=== PATIENT | female | born 1995 | race Caucasian/White ===

== ENCOUNTER 2017-10-20 11:26 | Inpatient (IN) | payer BC ==
[2017-10-20 14:42] LABS: ADD MAN DIFF? NO
[2017-10-20] MEDS ORDERED: CARBOPROST 250 MCG INJ IM (15:00)
[2017-10-20] MEDS ORDERED: IBUPROFEN 600 MG TAB PO (15:00)
[2017-10-20] MEDS ORDERED: METHYLERGONOVINE 0.2 MG INJ IM (15:00)
[2017-10-20] MEDS ORDERED: MISOPROSTOL 200 MCG TAB PR (15:00)
[2017-10-20] MEDS: LACTATED RINGER'S 1,000 ML IV ×2 (15:13→22:49)
[2017-10-20] MEDS: AMPICILLIN 2 GM/NS (PMX) 100 ML IV (15:14)
[2017-10-20 15:45] LABS: INR 0.89; PROTIME 12.1 Sec (11.9-14.9); PT RATIO 0.9
[2017-10-20 15:46] LABS: PARTIAL THROMBOPLASTIN TIME 26.4 Sec (25.0-35.0)
[2017-10-20 16:05] LABS: WHITE BLOOD COUNT 11.7 10^3/ul (4.8-10.8)
[2017-10-20 16:05] LABS: RED BLOOD COUNT 4.08 10^6/ul (4.20-5.40)
[2017-10-20 16:06] LABS: HEMATOCRIT 36.1 % (37.0-47.0)
[2017-10-20 16:07] LABS: MEAN CORPUSCULAR HEMOGLOBIN 29.9 pg (29.0-33.0); MEAN CORPUSCULAR HGB CONC 33.8 g/dl (32.0-37.0); MEAN CORPUSCULAR VOLUME 88.5 fl (72.0-104.0)
[2017-10-20 16:08] LABS: RED CELL DISTRIBUTION WIDTH 12.4 % (11.5-14.5)
[2017-10-20 16:09] LABS: MEAN PLATELET VOLUME 12.6 fl (7.4-10.4); NEUTROPHILS % 70.3 % (30.0-74.0); PLATELET COUNT 182 10^3/UL (140-415)
[2017-10-20 16:10] LABS: EOSINOPHILS % 0.5 % (0.0-7.0)
[2017-10-20 16:11] LABS: BASOPHILS % 0.3 % (0.0-2.0); NEUTROPHIL # 8.2 10^3/ul (1.6-7.5)
[2017-10-20 16:12] LABS: EOSINOPHILS # 0.1 10^3/ul (0.0-0.5); LYMPHOCYTES # 2.5 10^3/ul (0.8-2.9); MONOCYTE # 0.8 10^3/ul (0.3-0.9)
[2017-10-20 18:24] LABS: HEPATITIS B SURFACE ANTIGEN NEGATIVE (NEGATIVE)
[2017-10-20] MEDS: AMPICILLIN 1 GM/NS (PMX) 50 ML IV ×2 (18:32→22:48)
[2017-10-21] MEDS: AMPICILLIN 1 GM/NS (PMX) 50 ML IV (02:56)
[2017-10-21] MEDS: BUTORPHANOL 2 MG INJ IV (04:57)
[2017-10-21] MEDS: OXYTOCIN 30 UNITS/LR 500 ML IV ×3 (06:30→07:20)
[2017-10-21] MEDS: LIDOCAINE 1% (MPF) 30 ML INJ INJ (06:37)
[2017-10-21] MEDS ORDERED: OXYTOCIN 30 UNITS/LR 500 ML IV ×2 (07:17→07:30)
[2017-10-21] MEDS ORDERED: METHYLERGONOVINE 0.2 MG INJ IM (07:30)
[2017-10-21] MEDS ORDERED: CARBOPROST 250 MCG INJ IM (07:30)
[2017-10-21] MEDS ORDERED: MISOPROSTOL 200 MCG TAB PR (07:30)
[2017-10-21] MEDS: IBUPROFEN 600 MG TAB PO ×4 (07:37→23:35)
[2017-10-21] MEDS ORDERED: IBUPROFEN 600 MG TAB (07:37)
[2017-10-21] MEDS ORDERED: HYDROCODONE/APAP (5/325) TAB PO (08:00)
[2017-10-21] MEDS: LACTATED RINGER'S 500 ML ×3 (11:03→14:59)
[2017-10-21] MEDS: BENZOCAINE 20% 56 ML SPRAY TOP (12:08)
[2017-10-21] MEDS: LANOLIN 7 GM TUBE TOP (12:09)
[2017-10-21 12:56] LABS: HEMOGLOBIN 12.2 g/dl (12.0-16.0)
[2017-10-21 19:49] LABS: RAPID PLASMA REAGIN NONREACTIVE (NR)
[2017-10-22] MEDS: IBUPROFEN 600 MG TAB PO ×3 (05:46→17:30)
[2017-10-22 09:33] LABS: ADD MAN DIFF? NO
[2017-10-22 09:35] LABS: BASOPHILS % 0.4 % (0.0-2.0); EOSINOPHILS # 0.2 10^3/ul (0.0-0.5); EOSINOPHILS % 1.7 % (0.0-7.0); HEMATOCRIT 34.9 % (37.0-47.0); HEMOGLOBIN 11.8 g/dl (12.0-16.0); LYMPHOCYTES % 32.2 % (18.0-55.0); MEAN CORPUSCULAR HEMOGLOBIN 29.8 pg (29.0-33.0); MEAN CORPUSCULAR HGB CONC 33.8 g/dl (32.0-37.0); MEAN CORPUSCULAR VOLUME 88.1 fl (72.0-104.0); MEAN PLATELET VOLUME 11.1 fl (7.4-10.4); MONOCYTE # 0.3 10^3/ul (0.3-0.9); MONOCYTES % 3.6 % (0.0-13.0); NEUTROPHIL # 5.6 10^3/ul (1.6-7.5); NEUTROPHILS % 61.7 % (30.0-74.0); PLATELET COUNT 216 10^3/UL (140-415); RED BLOOD COUNT 3.96 10^6/ul (4.20-5.40); RED CELL DISTRIBUTION WIDTH 12.9 % (11.5-14.5)
[2017-10-22 09:35] LABS: WHITE BLOOD COUNT 9.2 10^3/ul (4.8-10.8)
[2017-10-23] MEDS: IBUPROFEN 600 MG TAB PO ×3 (00:19→12:26)
[2017-10-23] MEDS: HYDROCODONE/APAP (5/325) TAB PO (01:20)
[2017-10-23] MEDS: DIPHTH/TET/ACEL PERTUSS (ADULT) 0.5 ML VIAL IM* (08:49)
== END 2017-10-23 16:00 | disposition home or self-care (01) | DRG 775 ==
LOC: OBT 11:26 → PP1 10-21 09:07 → L-D 11:27 → OBT 15:00 → L-D 15:00
PROVIDERS: Obstetrics & Gynecology
PROC: 10E0XZZ Delivery of Products of Conception, External Approach (ICD-10-PCS; principal; 2017-10-21)
PROC: 0HQ9XZZ Repair Perineum Skin, External Approach (ICD-10-PCS; 2017-10-21)
DX: O70.0 First degree perineal laceration during delivery (principal); Z37.0 Single live birth; Z3A.38 38 weeks gestation of pregnancy
CPT/HCPCS: 36415; 76816; 76818; 85025; 85610; 85730; 86592; 86850; 86900; 86901; 87340; 90715